=== PATIENT | female | born 1950 | race Caucasian/White ===

== ENCOUNTER 2024-11-10 13:16 | Emergency (ER) | payer MEDICARE, OTHER, SELFPAY ==
[2024-11-10 13:25] VITALS: BP 133/83
[2024-11-10 13:40] LABS: % Basophils 1.2 % (0-2); % Eosinophils 3.1 % (0-6); % Immature Granulocytes 0.1 % (0-0.5); % Lymphocytes 26.7 % (20.5-51.1); % Monocytes 6.5 % (1.7-9.3); % Neutrophils 62.4 % (42.2-75.2); Absolute Basophils 0.1 10^3/uL (0-0.2); Absolute Eosinophils 0.3 10^3/uL (0-0.7); Absolute Lymphocytes 2.3 10^3/uL (1.2-3.4); Absolute Monocytes 0.6 10^3/uL (0.1-0.6); Absolute Neutrophils 5.3 10^3/uL (1.4-6.5); Hematocrit 37.1 % (37.0-47.0); Hemoglobin 12.6 g/dL (12.0-16.0); Mean Corpuscular Hgb 31.1 pg (27.0-31.0); Mean Corpuscular Volume 91.6 fL (81.0-99.0); Mean Platelet Volume 10.7 fL (7.4-10.4); Nucleated Red Blood Cells % 0 %; Platelet Count 161 10^3/uL (130-400); Red Blood Cell Count 4.05 10^6/uL (4.20-5.40); Red Cell Dist. Width 12.6 % (11.5-14.5); White Blood Cell Count 8.5 10^3/uL (4.8-10.8)
[2024-11-10 14:00] LABS: ALT (SGPT) 24 U/L (0-35); AST (SGOT) 40 U/L (14-36); Albumin 4.3 g/dl (3.5-5.0); Alkaline Phosphatase 75 U/L (38-126); Blood Urea Nitrogen 29 mg/dl (7-17); Calcium 9.8 mg/dl (8.4-10.2); Carbon Dioxide 25 mmol/L (22-30); Chloride 108 mmol/L (98-107); Glucose 233 mg/dl (70-99); Magnesium 1.5 mg/dl (1.6-2.3); Potassium 4.9 mmol/L (3.5-5.1); Sodium 142 mmol/L (135-145); Total Bilirubin 0.5 mg/dl (0.2-1.3); Total Protein 6.9 g/dl (6.3-8.2); eGFR > 60.00
--- NOTE | 2024-11-10 14:01 | ED.GENMED ---
History of Present Illness
General
Chief Complaint: Heart Rate Problem
Source: patient
Exam Limitations: none
Time Seen by Provider: 11/10/24 14:01
History of Present Illness
History of Present Illness:
74-year-old female complaining of heart racing lightheadedness some shortness of breath this morning around 9 AM. Persisted until she got here. Has had episodes intermittently in the past over months. Last episode was 2 days ago. No chest pain
or syncope. No proven history of atrial fibrillation. Patient has a history of diabetes. Is on a TERRIE inhibitor although states she has no history of hypertension. Currently feels fine. And has no symptoms.
Past History
Past History
ED Past Medical History: GERD and NIDDM
ED Past Surgical History: Cholecystectomy
Review of Systems
Review of Systems
All Other Systems: Not applicable
Cardiac: Denies chest pain or syncope
ABD/GI: Denies bloody stools or black stools
Phy Exam
Physical Exam
Physical Exam:
GENERAL: Alert and oriented in no apparent distress
EYE: Orbits normal.
NECK: Supple, no thyroid palpable
ENT: Pharynx without erythema
CARDIAC: Regular rate and rhythm without any obvious murmurs.
LUNGS: Clear breath sounds,normal
ABDOMEN: Soft, without focal tenderness or distention
NEUROLOGICAL: Alert and oriented , grossly non-focal
SKIN: Warm and dry, no rash or lesion, no discoloration, skin intact.
MUSCULOSKELETAL: Minimal bilateral lower extremity pitting edema
PSYCH: Normal and appropriate interaction.
Scores
[id number] Score for Afib Stroke Risk
Age in Years (65=0, 65-74=1, >/=75=2): > or = 75
Sex (Female=+1): Female
Congestive Heart Failure History (Yes=+1): No
Hypertension History (Yes=+1): No
Stroke/TIA/Thromboembolism History (Yes=+2): No
Vascular Disease History (Yes=+1): No
Diabetes Mellitus (Yes=+1): No
Score: 3
Anticoagulation Recommendations: Recommend anticoagulation (as validated in nonvalvular fib)
Course
Orders/Labs/Results
Orders:
Orders
11/10/24 13:18
Electrocardiogram (*1) Urgent
Reason for Study: Chest Pain
EKG- Treatment ONCE
11/10/24 13:34
Complete Blood Count/With Diff Urgent
Comprehensive Metabolic Panel Urgent
Magnesium Urgent
TSH Urgent
Troponin I Urgent
11/10/24 14:15
EKG [Electrocardiogram (*1)] Urgent
Reason for Study: Palpitations
EKG- Treatment ONCE
11/10/24 14:26
Apixaban [Eliquis] 5 mg PO NOW STA
Diltiazem Extended Release [Cardizem Cd] 120 mg PO NOW STA
Abnormal Lab Results
11/10/24
13:34
RBC 4.05 L 10^6/uL
(4.20-5.40)
MCH 31.1 H pg
(27.0-31.0)
MPV 10.7 H fL
(7.4-10.4)
Chloride 108 H mmol/L
(98-107)
BUN 29 H mg/dl
(7-17)
Glucose 233 H mg/dl
(70-99)
Magnesium 1.5 L mg/dl
(1.6-2.3)
AST 40 H U/L
(14-36)
11/10/24 13:34
11/10/24 13:34
Vital Signs
Initial and Last Documented VS:
Initial Vital Signs
Temp Pulse Resp BP Pulse Ox
98.2 F 113 20 133/83 98
11/10/24 13:25 11/10/24 13:25 11/10/24 13:25 11/10/24 13:25 11/10/24 13:25
Last Documented Vital Signs
Temp Pulse Resp BP Pulse Ox
98.2 F 65 18 138/64 99
11/10/24 13:25 11/10/24 15:15 11/10/24 15:15 11/10/24 15:01 11/10/24 15:15
MDM/Problems Addressed
Differential Diagnosis Includes:
Patient describing PAF. Self resolved. Currently asymptomatic. [id number] 3 or 4 if you include her hypertension. No contraindication to anticoagulation. Discussed plus minuses of Coumadin versus a DOAC. Will start DOAC. Low-dose Cardizem
and cardiac follow-up. Discussed with cardiology
*Pulse Oximetry
Patient hypoxic: no
*EKG
Interpreted by ED Provider?: Yes
Interpretation: abnormal
Comparison EKG: no comparison EKG present
Heart Rate: 156
Rate: tachycardiac
Rhythm: a-fib
[place]: normal axis
Interval: normal interval
QRS Pattern: normal QRS
Ischemia: non-specific ST changes
*Field Crop Technical Officer Interpretation
Rate: normal
Interpretation: normal
Heart Rate: 70
Rhythm: sinus
*Critical Care Note
Total Time (30-74mins, 75-104mins- exclusive of procedures): Not Applicable
Update Note
Update Note:
Patient is remained stable and nontoxic. No arrhythmias. Stable heart rate. Stable blood pressure. Discharged to follow-up
ED Attending Note
-
Portions of this chart may have been created with voice recognition software.� Occasional wrong word or��sound alike� substitutions may have occurred due to the inherent limitations of voice recognition software.
Discharge Plan
Departure
Patient Disposition: Home (Routine Discharge)
Date of Disposition: 11/10/24
Time of Disposition: 16:09
Patient with high blood pressure during this ER visit?: Yes
Discharge Problem:
Paroxysmal atrial fibrillation/RVR
Instructions: Atrial Fibrillation (DC), Managing increased bleeding risk, BLOOD PRESSURE
Prescriptions:
New
Eliquis 5 mg tablet
5 mg PO BID Qty: 60 0RF
diltiazem HCl [Cardizem CD] 120 mg capsule,extended release 24hr
120 mg PO DAILY Qty: 30 0RF
Referrals:
Charlie Salguero MD [Family Provider] - Follow up in 2-3 days
Han Fields MD [Active] - Follow up in 2-3 days
Activity Restrictions/Additional Instructions:
Stop the ramipril stop the aspirin
Call the lumber tying machine operator first thing for close follow-up
Interventions
Interventions:
*General Assessment Last Done: 11/10/24 13:25
*Neglect/Abuse Screening Last Done: 11/10/24 14:12
*ED- Fall Risk Assessment Last Done: 11/10/24 14:11
*ED COVID-19 Vaccine History Last Done: 11/10/24 14:12
ED- Cardiac Assessment Last Done: 11/10/24 14:11
ED- Pulmonary Assessment Last Done: 11/10/24 14:11
Discharge Date and Time
Print Language: MONTSERRATIAN
[2024-11-10 14:07] LABS: Troponin I < 0.012 ng/ml
[2024-11-10 14:21] VITALS: BP 116/74
[2024-11-10 14:30] LABS: TSH 2.34 uIU/ml (0.47-4.68)
[2024-11-10] MEDS: ELIQUIS 5 MG PO (14:52)
[2024-11-10] MEDS: CARDIZEM CD 120 MG PO (14:52)
[2024-11-10 15:01] VITALS: BP 138/64
== END 2024-11-10 16:25 | disposition home or self-care (01) ==
LOC: EMR 13:16
PROVIDERS: Emergency Medicine; EMERGENCY PHYSICIAN Emergency Medicine; FAMILY PHYSICIAN Internal Medicine
DX: I48.0 Paroxysmal atrial fibrillation (principal); R03.0 Elevated blood-pressure reading, without diagnosis of hypertension; E11.9 Type 2 diabetes mellitus without complications
CPT/HCPCS: 99284; 80053; 83735; 84443; 84484; 85025; 93005

== ENCOUNTER → 2024-12-01 08:35 | Outpatient (REF) | payer MEDICARE, OTHER, SELFPAY | LOC: RCS 08:35 | PROVIDERS: ATTENDING PHYSICIAN Internal Medicine; FAMILY PHYSICIAN Internal Medicine | DX: I48.0 Paroxysmal atrial fibrillation (principal); I35.0 Nonrheumatic aortic (valve) stenosis; I10 Essential (primary) hypertension | CPT/HCPCS: 93306 ==

== ENCOUNTER → 2024-12-02 07:13 | Outpatient (REF) | payer MEDICARE, OTHER, SELFPAY | LOC: RAD 07:13 | PROVIDERS: ATTENDING PHYSICIAN Internal Medicine; FAMILY PHYSICIAN Internal Medicine | DX: I48.0 Paroxysmal atrial fibrillation (principal); I35.0 Nonrheumatic aortic (valve) stenosis | CPT/HCPCS: 93225; 93226; 93880 ==

== ENCOUNTER → 2024-12-05 07:14 | Outpatient (REF) | payer MEDICARE, OTHER, SELFPAY | LOC: HWRCS 07:14 | PROVIDERS: ATTENDING PHYSICIAN Internal Medicine; FAMILY PHYSICIAN Internal Medicine | DX: I48.0 Paroxysmal atrial fibrillation (principal); R07.89 Other chest pain | CPT/HCPCS: 78452; 93017; A9500; J2785 ==

== ENCOUNTER → 2025-02-17 13:15 | Outpatient (REF) | payer MEDICARE, OTHER, SELFPAY ==
[2025-02-17 13:49] LABS: Hematocrit 33.9 % (37.0-47.0); Hemoglobin 11.6 g/dL (12.0-16.0); Mean Corp Hgb Conc. 34.2 g/dL (33.0-37.0); Mean Corpuscular Volume 92.6 fL (81.0-99.0); Nucleated Red Blood Cells % 0 %; Platelet Count 156 10^3/uL (130-400); Red Cell Dist. Width 12.4 % (11.5-14.5)
[2025-02-17 14:52] LABS: ALT (SGPT) 24 U/L (0-35); AST (SGOT) 31 U/L (14-36); Albumin 4.5 g/dl (3.5-5.0); Alkaline Phosphatase 55 U/L (38-126); Blood Urea Nitrogen 29 mg/dl (7-17); Calcium 9.7 mg/dl (8.4-10.2); Carbon Dioxide 27 mmol/L (22-30); Chloride 106 mmol/L (98-107); Glucose 124 mg/dl (70-99); Potassium 4.9 mmol/L (3.5-5.1); Sodium 140 mmol/L (135-145); Total Protein 7.0 g/dl (6.3-8.2); eGFR 52.40
== END ==
LOC: SDSPAT 13:15
PROVIDERS: ATTENDING PHYSICIAN Internal Medicine Cardiovascular Disease; FAMILY PHYSICIAN Internal Medicine; OTHER PHYSICIAN Internal Medicine
DX: I48.0 Paroxysmal atrial fibrillation (principal)
CPT/HCPCS: 36415; 80053; 85025; 86850; 86900; 86901; 93005

== ENCOUNTER 2025-03-03 10:13 | Day surgery (SDC) | payer MEDICARE, OTHER, SELFPAY ==
[2025-02-17 13:32] VITALS: BMI 30.2
[2025-03-03] VITALS (9 sets, daily range): BP systolic 111–160; BP diastolic 64–80; BMI 30.3
[2025-03-03 11:03] LABS: Glucose - Point of Care 143 mg/dl (70-99)
[2025-03-03 13:55] LABS: ACT-LR - POC 360 Seconds (116-155)
[2025-03-03 14:15] LABS: ACT-LR - POC 327 Seconds (116-155)
--- NOTE | 2025-03-03 14:38 | ITS.CL.ABL ---
[facility] - Ablation
Ablation
Procedure Report:
AFIB ablation:
Ms. Marr is a very pleasant 74 yr old woman with medical history significant for symptomatic paroxysmal atrial fibrillation is here in the EP lab for atrial fibrillation ablation
Date of Procedure:
03/03/2025
Indications:
Symptomatic paroxysmal atrial fibrillation
Pre-Operative Diagnosis:
Paroxysmal atrial fibrillation
Post-Operative Diagnosis:
Paroxysmal atrial fibrillation
Procedure Performed:
Atrial fibrillation ablation with wide area circumferential ablation (WACA) approach for pulmonary vein isolation
Performing Physician:
Anny Sharp MD
Assistants:
EP staff
Anesthesia:
See anesthesia records
Detailed Description of the Procedure:
Written informed consent was obtained from the patient after a full explanation of the risks and benefits of the procedure including the risks of sedation and anesthesia.
The patient was brought to the electrophysiology laboratory in stable condition in fasting state. Continuous electrocardiographic and hemodynamic monitoring was initiated.
The initial rhythm was sinus rhythm.
The procedure site was meticulously prepared with surgical scrub and allowed to dry with no pooling. Sterile draping was applied to cover the procedure site. The image intensifier was draped with sterile bag and positioned over the patient. After
infusion of local anesthetic, vascular access was obtained under ultrasound guidance and sheaths were placed over guide wire as detailed below.
The images of the ultrasound of the femoral vessels were stored in patient chart.
Sheath and Catheter Placement:
The following catheters / sheaths were placed
Sheaths:
��������� Agilis sheath in right femoral vein upgraded from 10Fr in right femoral vein
��������� 9Fr in right femoral vein
Catheters:
��������� The Affera Sphere 9 catheter -bidirectional D/F� - at locations of HRA, LA and LV.
��������� ICE catheter -� at locations of RA, SVC, and RV.
Heparin was initiated after the access was obtained.
Intracardiac ECHO:
An 8-Romanian AcuNav intracardiac ECHO (ICE) probe was advanced through the 9-Romanian sheath in the left femoral vein into the right atrium under fluoroscopic and ICE ultrasound image guidance and a baseline ECHO study was performed. The left atrial
size was mildly dilated. There was trace tricuspid regurgitation. The aortic valve was grossly normal. There was normal left ventricular size and function. There is a trace pericardial effusion. The ELIANA has baseline normal velocities. The pulmonary
had good flow identified.
During the procedure, ICE was used for monitoring of complications, guidance of trans-septal puncture, monitor the catheter position and tracking ablation lesions. No change in the pericardial space noted throughout the procedure.
Trans-septal Puncture:
Heparin was initiated and infused to maintain appropriate ACT. A J-tipped guidewire was advanced through into the superior vena cava under fluoroscopic and ICE guidance. The Agilis sheath with BRK needle was advanced into the superior vena cava over
the guidewire. The apparatus was withdrawn until it was in contact with the fossa ovalis. The position was adjusted based on fluoroscopy and ultrasound images from ICE. Under fluoroscopic, hemodynamic and ICE ultrasound guidance, left atrium was
cannulated by advancing the needle. Once atrial septum was cannulated, the needle was pulled back and the guide wire was advanced through the needle into the left atrium. The guide wire was advanced into the left superior pulmonary vein. Both the
sheath and the dilator was advanced into the left atrium. The dilator with the needle was withdrawn. Blood was aspirated from the Agilis sheath and arterial blood confirmed. The sheath was flushed. Saline injection noted into the left atrium on ICE.
The waveform of the LA pressure was recorded. The mapping catheter was advanced in the Agilis sheath into the left pulmonary vein.
3D Electroanatomic Mapping:
Using the Sphere 9 Affera catheter advanced through Agilis sheath into the left atrium, an electroanatomic map (EAM) of the left atrium was created using Transit Appa� mapping system with [email or web address] software. The map was used for localization of catheter
position and tacking of ablation lesions. The EAM of the left atrium showed a total of 4 PVs with a two left and two right sided pulmonary veins with all electrically connected to the body the LA. It showed no significant scar on the posterior wall
of the LA. The LA was dilated in size.
Following the EAM, preparation were made for ablation.
Ablation:
Ablation # 2: Pulmonary vein Isolation:
Glycopyrrolate 0.2 mg was given prior to the placement of ablation.
Pulsed field ablation was performed using an open irrigation, bidirectional, contact sensing, dual energy ablation catheter (Transit Appa sphere -9) by completing the circumferential lesions around the left and right pulmonary veins achieving pulmonary
vein isolation.
Confirmation of the PVI and bidirectional block:
Following achievement of entrance block at the pulmonary veins, pacing from the Sphere 9 affera catheter in each of the four veins at 20 milliamps for 4 milliseconds showed entrance and exit block.
The LA was mapped with The Transit Appa� mapping system with [employer] software in sinus rhythm confirming the line of block at the ablation lesions lines.
�
EP study:
Sinus Node Function: The sinus node functions are within acceptable normal range.
Atrioventricular Aliyah Function: �Normal AV conduction noted with normal AV aliyah conduction time.
Procedure End
ICE study was done again that showed no epicardial accumulation. No complications noted.
Following the completion of the EP study, catheters were removed. Protamine 40 mg was given at the end of the procedure and ACT was checked repeatedly. The sheaths were removed and hemostasis achieved with VASCADE / Figure of 8 suture and manual
compression after acceptable ACT is achieved.
Left atrial Pressure:
Pre-Procedure: Mean LA pressure was 4mmHg
Post-Procedure: Mean LA pressure was 5mmHg
Post-Procedure: Mean RA pressure was 3mmHg
�
Estimated Blood loss:
<10 cc
Specimens Removed:
None.
Implants / Devices:
None
Urine output:
None
Packs / Drains/ Tubes:
None
Instrument / Sponge Count Correct:
Yes
Complications of the Procedure:
None
Condition of Patient at Time of Transfer:
Hemodynamically stable with no neurological or vascular compromise.
Summary:
��������� Successful atrial fibrillation ablation with circumferential bidirectional line of block at pulmonary vein antra (Pulmonary vein isolation)
Figures from the Procedure:
Figure 1: The electroanatomic mapping (EAM) of the left atrium with bipolar voltage (purple indicates normal electrical activity with red as no myocardial muscle electric activity indicating a line of block or scar.
[2025-03-03 16:22] LABS: Glucose - Point of Care 151 mg/dl (70-99)
--- NOTE | 2025-03-03 17:02 | W.PN.UPDATE ---
Update Note
Progress Note Update
Pt seen post PFA. Right groin with vascade closure, site without ht/bleeding. OOB ambulating. Post EKG NSR 74, no acute changes. Resume eliquis tonight, continue diltiazem as before. Followup at [facility] as scheduled. Home today if groin site/tele remain
stable.
== END 2025-03-03 17:25 | disposition home or self-care (01) ==
LOC: CATH 10:13
PROVIDERS: ATTENDING PHYSICIAN Internal Medicine Cardiovascular Disease; FAMILY PHYSICIAN Internal Medicine; OTHER PHYSICIAN Internal Medicine
DX: I48.0 Paroxysmal atrial fibrillation (principal); I10 Essential (primary) hypertension; E78.5 Hyperlipidemia, unspecified; Z87.891 Personal history of nicotine dependence; E66.9 Obesity, unspecified; Z68.30 Body mass index [BMI] 30.0-30.9, adult; E11.9 Type 2 diabetes mellitus without complications; K21.9 Gastro-esophageal reflux disease without esophagitis; Z90.49 Acquired absence of other specified parts of digestive tract; Z79.01 Long term (current) use of anticoagulants; Z79.899 Other long term (current) drug therapy; Z79.84 Long term (current) use of oral hypoglycemic drugs; D64.9 Anemia, unspecified; I35.0 Nonrheumatic aortic (valve) stenosis
CPT/HCPCS: C1769; C1733; C1766; C1894; C1892; 82962; 85347; 86900; 86901; 93005; 93656; C1760

== ENCOUNTER 2025-06-01 07:53 | Inpatient (IN) | payer MEDICARE, OTHER, SELFPAY ==
[2025-05-29 19:37] VITALS: BP 166/91
[2025-05-29 19:56] LABS: Hematocrit 33.0 % (37.0-47.0); Hemoglobin 11.0 g/dL (12.0-16.0); Mean Corp Hgb Conc. 33.3 g/dL (33.0-37.0); Mean Corpuscular Volume 93.8 fL (81.0-99.0); Nucleated Red Blood Cells % 0 %; Platelet Count 213 10^3/uL (130-400); Red Cell Dist. Width 12.7 % (11.5-14.5)
[2025-05-29 20:19] LABS: ALT (SGPT) 21 U/L (0-35); AST (SGOT) 32 U/L (14-36); Albumin 4.6 g/dl (3.5-5.0); Alkaline Phosphatase 67 U/L (38-126); Blood Urea Nitrogen 25 mg/dl (7-17); Calcium 9.7 mg/dl (8.4-10.2); Carbon Dioxide 27 mmol/L (22-30); Chloride 106 mmol/L (98-107); Glucose 120 mg/dl (70-99); Potassium 4.4 mmol/L (3.5-5.1); Sodium 142 mmol/L (135-145); Total Protein 7.4 g/dl (6.3-8.2); eGFR > 60.00
--- NOTE | 2025-05-29 23:17 | ED.SKININJ ---
HPI-Injury
<Hanny Pete, SERVICE MANAGER - Last Filed: 05/30/25 01:50>
General
Chief Complaint: Skin Problem
Source: patient
Exam Limitations: none
Time Seen by Provider: 05/29/25 22:37
Nursing documentation reviewed up to this point in time: agreed with
History of Present Illness-Injury
Initial Injury comments:
74-year-old female with history of NIDDM, GERD, A-fib on Eliquis, presents for wound posterior left lower leg. She states 12 days ago she was in her basement cleaning when a pipe fell over and struck the back of her left leg causing a break in the
skin. She has had increasing redness, swelling and pain since. She denies fever or chills. Denies N/V. She states it is painful to walk.
Past History
<Hanny Pete, SERVICE MANAGER - Last Filed: 05/30/25 01:50>
Past History
ED Past Medical History: GERD and NIDDM
ED Past Surgical History: Cholecystectomy
Review of Systems
<Hanny Pete, SERVICE MANAGER - Last Filed: 05/30/25 01:50>
Review of Systems
Allergies reviewed?: Yes
All Other Systems: ROS reviewed and negative except as documented in HPI and ROS
Constitutional: Denies fever or chills
Phy Exam
<Hanny Pete, SERVICE MANAGER - Last Filed: 05/30/25 01:50>
Physical Exam
Physical Exam:
GENERAL: No acute distress. A&Ox3.
CONSTITUTIONAL: Afebrile.
EYES: clear, conjunctivae normal
ENMT: moist mucus membranes, Pharynx nl
RESPIRATORY: Regular respirations, nonlabored, lungs clear.
CARDIOVASCULAR: Regular rate and rhythm, no murmurs, no rubs.
GI: Soft, nontender, normal BS
MUSCULOSKELETAL: Moves with ease. Well perfused.
SKIN: Warm, dry, pink. Left lower extremity has a 20 cm x 20 cm erythematous area posteriorly. In the center there is a dark ecchymotic area that is raised and very tender. Distal neurovascular intact.
PSYCH: Normal mood and affect. Well kept, interactive and appropriate
NEUROLOGIC: Awake, alert and oriented. No focal neurological deficits
Course
<Hanny Pete, SERVICE MANAGER - Last Filed: 05/30/25 01:50>
Orders/Labs/Results
Orders:
Orders
05/29/25 19:39
US Legs, Left [US Periph Venous LOWER Ext LT] Urgent
Comment:
Reason For Exam: redness/pain left calf
05/29/25 19:43
Complete Blood Count/With Diff Urgent
Comprehensive Metabolic Panel Urgent
05/29/25 23:46
Piperacillin/Tazo 3.375 Gram [Zosyn] 3.375 gram in 50 ml IV NOW
05/29/25 23:47
Oxycodone/Acetaminophen [Percocet 5/325] 1 tablet PO NOW STA
05/30/25 00:46
Admit/Transfer Patient As Directed
Co-Sign Provider:
Level of Care: Observation services
Assign to:: Medical/Surgical
Physician / Group: [facility]
Diagnosis: Cellulitis
05/30/25 00:47
Code Status As Directed
Resuscitation Status: Full Code
PRN Pain Medication Management As Directed
May give lesser potent ordered pain med per pt: Yes
preference::
Protocol:: Medication orders for pain may be administered in a
manner that supports deferring to patient preference
when the pt is:
- Requesting an ordered lesser potent pain medication.
Least to most potent pain medications are defined
as: acetaminophen < NSAID < tramadol < opioids
(morphine, oxycodone, hydromorphone).
- Requesting a lesser dose of the same medication IF
ORDERED.
- Requesting a less intrusive route of administration
if both routes are prescribed by the provider (PO <
IV).
Abnormal Lab Results
05/29/25
19:43
RBC 3.52 L 10^6/uL
(4.20-5.40)
Hgb 11.0 L g/dL
(12.0-16.0)
Hct 33.0 L %
(37.0-47.0)
MCH 31.3 H pg
(27.0-31.0)
BUN 25 H mg/dl
(7-17)
Glucose 120 H mg/dl
(70-99)
05/29/25 19:43
05/29/25 19:43
Vital Signs
Initial and Last Documented VS:
Initial Vital Signs
Temp Pulse Resp BP Pulse Ox
98.0 F 80 18 166/91 96
05/29/25 19:37 05/29/25 19:37 05/29/25 19:37 05/29/25 19:37 05/29/25 19:37
Last Documented Vital Signs
Temp Pulse Resp BP Pulse Ox
98.3 F 68 18 167/58 96
05/29/25 23:39 05/29/25 23:39 05/29/25 19:37 05/29/25 23:39 05/29/25 23:18
Feed Mill Manager consulted with Physician
Feed Mill Manager consulted with physician?: Yes
Name of Physician Consulted: Mary Ann
Kiranlt;Star Reese DO - Last Filed: 05/30/25 00:17>
Orders/Labs/Results
Orders:
Orders
05/29/25 19:39
US Legs, Left [US Periph Venous LOWER Ext LT] Urgent
Comment:
Reason For Exam: redness/pain left calf
05/29/25 19:43
Complete Blood Count/With Diff Urgent
Comprehensive Metabolic Panel Urgent
05/29/25 23:46
Piperacillin/Tazo 3.375 Gram [Zosyn] 3.375 gram in 50 ml IV NOW
05/29/25 23:47
Oxycodone/Acetaminophen [Percocet 5/325] 1 tablet PO NOW STA
05/30/25 00:46
Admit/Transfer Patient As Directed
Co-Sign Provider:
Level of Care: Observation services
Assign to:: Medical/Surgical
Physician / Group: Donn
Diagnosis: Cellulitis
05/30/25 00:47
Code Status As Directed
Resuscitation Status: Full Code
PRN Pain Medication Management As Directed
May give lesser potent ordered pain med per pt: Yes
preference::
Protocol:: Medication orders for pain may be administered in a
manner that supports deferring to patient preference
when the pt is:
- Requesting an ordered lesser potent pain medication.
Least to most potent pain medications are defined
as: acetaminophen < NSAID < tramadol < opioids
(morphine, oxycodone, hydromorphone).
- Requesting a lesser dose of the same medication IF
ORDERED.
- Requesting a less intrusive route of administration
if both routes are prescribed by the provider (PO <
IV).
Abnormal Lab Results
05/29/25
19:43
RBC 3.52 L 10^6/uL
(4.20-5.40)
Hgb 11.0 L g/dL
(12.0-16.0)
Hct 33.0 L %
(37.0-47.0)
MCH 31.3 H pg
(27.0-31.0)
BUN 25 H mg/dl
(7-17)
Glucose 120 H mg/dl
(70-99)
05/29/25 19:43
05/29/25 19:43
Vital Signs
Initial and Last Documented VS:
Initial Vital Signs
Temp Pulse Resp BP Pulse Ox
98.0 F 80 18 166/91 96
05/29/25 19:37 05/29/25 19:37 05/29/25 19:37 05/29/25 19:37 05/29/25 19:37
Last Documented Vital Signs
Temp Pulse Resp BP Pulse Ox
98.3 F 68 18 167/58 96
05/29/25 23:39 05/29/25 23:39 05/29/25 19:37 05/29/25 23:39 05/29/25 23:18
<Hanny Pete, SERVICE MANAGER - Last Filed: 05/30/25 01:50>
MDM/Problems Addressed
Differential Diagnosis Includes:
Cellulitis, DVT
MDM/Problems Addressed:
74-year-old female with history of NIDDM, GERD, A-fib on Eliquis, presents for wound posterior left lower leg. She states 12 days ago she was in her basement cleaning when a pipe fell over and struck the back of her left leg causing a break in the
skin. She has had increasing redness, swelling and pain since. She denies fever or chills. Denies N/V. She states it is painful to walk.
Afebrile, NAD
CBC unremarkable
CMP unremarkable
Ultrasound radiology report read: Neg for DVT, + hematoma
Pretty significant warmth, tenderness, cellulitis and a diabetic patient.
Recommend admission for IV antibiotics
Hospitalist notified of admission
<Hanny Pete, SERVICE MANAGER - Last Filed: 05/30/25 01:50>
*Pulse Oximetry
SaO2: 96
Oxygen Mode of Delivery: Room air
Patient hypoxic: not evaluated
*Critical Care Note
Total Time (30-74mins, 75-104mins- exclusive of procedures): Not Applicable
ED Attending Note
<Hanny Pete SERVICE MANAGER - Last Filed: 05/30/25 01:50>
-
Portions of this chart may have been created with voice recognition software.� Occasional wrong word or��sound alike� substitutions may have occurred due to the inherent limitations of voice recognition software.
<Star Reese DO - Last Filed: 05/30/25 00:17>
ED Attending Note
Patient seen and examined by attending physician: Yes
I performed the substantive portion of visit, reviewed & personally made and approve the management plan that is documented in note by myself or EUFEMIA.: Yes
ED Attending Note:
I agree with Nirmala's note
Patient presents with pain, redness, swelling posterior left calf. Patient suffered an injury as noted by Nirmala. Increasing pain recently. No fever.
Left lower extremity noted to have erythema, swelling at the lower third of the lower leg. Posteriorly there is an area of black discoloration and eschar. There is ecchymotic changes noted to the foot. Area is quite tender to palpation.
Suspect patient had a hematoma in this area which may now have become infected. Will hospitalize him cover with antibiotics.
Discharge Plan
Departure
Patient Disposition: Admit
Date of Disposition: 05/29/25
Time of Disposition: 23:46
Admit to: Med/Surg
Presentation/result/management discussed w/ accepting MD/DO: Hospitalist
Condition: Fair
Discharge Problem:
Cellulitis of left lower extremity
Interventions
Interventions:
*Risk Screen - Suicide Last Done: 05/30/25 00:04
*General Assessment Last Done: 05/29/25 19:37
*ED- Fall Risk Assessment Last Done: 05/29/25 23:53
*ED COVID-19 Vaccine History Last Done: 05/29/25 23:53
*ED Influenza Vaccine History Last Done: 05/29/25 23:53
ED-Skin Assessment Last Done: 05/30/25 00:40
[2025-05-29 23:39] VITALS: BP 167/58
[2025-05-29 23:41] VITALS: BMI 30.1
[2025-05-29] MEDS: PERCOCET 5/325 1 TABLET PO (23:56)
[2025-05-29] MEDS: ZOSYN 50 IV (23:56)
--- NOTE | 2025-05-30 00:25 | HPS.HSE ---
Family Physician
-
Family Physician: Charlie Salguero
Chief Complaint
-
Lower extremity swelling and tenderness
History of Present Illness
This is a 74-year-old with past medical history of pim-oevlyvq-blnxkzotr diabetes, atrial fibrillation on anticoagulation status post recent ablation in March, GERD, hyperlipidemia who presents to the emergency department with left lower
extremity swelling and redness ongoing since 2 weeks after blunt trauma to that leg.
Patient reported that she had a blunt trauma to the leg about 2 weeks ago. She developed a swelling since then and was seen by PMD were told that she had hematoma. She applied hide ice and avoided weightbearing on that leg. She reported that she
was able to be out of symptoms however has been getting worse and over the last 24 hours she reports a new burning sensation localized to the leg. She is now unable to put any weight on that leg. She reports that the swelling is about the same.
She denies any discharge. She denies having any fevers or chills.
In the emergency department she was afebrile, blood pressure 167/58 with a pulse of 68 and she was satting 96% on room air.
CBC was unremarkable. White count was 7.8. Electrolytes BUN/creatinine were normal. She had an ultrasound of the lower extremity which was negative for a DVT with a 3.2 x 3.8 x 1.1 cm complex avascular fluid collection posterior to the distal
left calf at site of trauma likely a hematoma
Medical History
Past Medical History
Past Medical History: Reports Arrhythmia (Paroxysmal atrial fibrillation status post ablation), Hypercholesterolemia and NIDDM
Past Surgical History: Reports Cholecystectomy and Orthopedic
Social History
Tobacco: Non-smoker
Alcohol: None
Drug: None
Living: With Family
Employment: Retired
Family History
Family History: Not pertinent
Allergies / Home Medications
Allergies reflects when Allergies were last updated in [employer].
Home Medications with original date entered in [employer]
Allergy/Medication List:
Allergies
Allergy/AdvReac Type Severity Reaction Status Date / Time
No Known Allergies Allergy Verified 05/29/25 19:37
Home Medications
apixaban 5 mg tablet (Eliquis) 5 mg PO BID #60 tabs 11/10/24
diltiazem HCl 360 mg capsule,24 hr,extended release 360 mg PO HS 02/13/25
metformin 500 mg tablet,extended release 24hr (osmotic) 500 mg PO BID 02/13/25
pantoprazole 40 mg tablet,delayed release 40 mg PO HS 02/13/25
rosuvastatin 20 mg tablet 20 mg PO DAILY 05/29/25
Review of Systems
-
History Source: Patient
Constitutional: Reports No Symptoms
EENT: Reports No Symptoms
Respiratory: Reports No Symptoms
Cardiac: Reports No Symptoms
Abdomen/GI: Reports No Symptoms
: Reports No Symptoms
Skin: Reports Other (Left-sided lower leg/calf swelling erythema and tenderness)
Neurological: Reports No Symptoms
Endocrine: Reports No Symptoms
Hematologic/Lymphatic: Reports No Symptoms
Psych: Reports No Symptoms
Physical Exam
Vital Signs
Vital Signs
Temp Pulse Resp BP Pulse Ox
98.3 F 68 18 167/58 96
05/29/25 23:39 05/29/25 23:39 05/29/25 19:37 05/29/25 23:39 05/29/25 23:18
Physical Exam
General: Well Developed, Well Nourished and No Apparent Distress
HEENT: NormoCephalic, Moist mucous membranes and Atraumatic
Respiratory: Clear
Cardiac: S1/S2 and Regular Rhythm; No Murmur or Rub
GI: Soft, Non Tender, Non Distended and Normal Bowel Sounds; No Organomegaly
Rectal: Deferred by Provider
Musculoskeletal: No Clubbing, No Cyanosis and Edema, Left Lower Extremity (There is nodular swelling in the posterior left lower calf, associated tenderness to palpation is quite exquisite. There is surrounding erythema of about sick centimeters in
diameter. Moderate induration. There is no obvious fluctuance.)
Skin: No Rash
Neuro: AO x 3 and Nonfocal/grossly intact
Hematologic/Lymphatic: No Lymphadenopathy
Psych: Calm
Laboratory Results
-
05/29/25 19:43
05/29/25:43
Laboratory Results
Total Bilirubin 0.4 mg/dl (0.2-1.3) 05/29/25 19:43
AST 32 U/L (14-36) 05/29/25:43
ALT 21 U/L (0-35) 05/29/25:43
Alkaline Phosphatase 67 U/L (38-126) 05/29/25:43
Data Reviewed
-
Ultrasound: Report Reviewed by me
Lab Data: Labs Reviewed by me
Old Records: Reviewed
Impression/Plan
-
IMPRESSION:
74-year-old female with past medical history of bqo-zzzasek-ocirvrhlr diabetes, paroxysmal atrial fibrillation status post ablation, GERD and hyperlipidemia who presents to the emergency department with left lower extremity swelling and erythema
concerning for cellulitis after trauma. Ultrasound is consistent with hematoma in that leg which appears to have been present for about a week but there is appears to be surrounding cellulitis now. Cannot rule out an infectious fluid collection
based on the ultrasound but more likely is an hematoma with superficial cellulitis.
PLAN:
Cellulitis - Cellulitis secondary to Left lower posterior calf trauma and hematoma. Cannot rule out abscess. No systemic signs, no leukocytosis. U/S more c/w hematoma.
- admit to med/surg observation
- continue with IV unasyn for now
- blood cultures if spike fever
- pain control
- avoid weight bearing to leg for now
- if no improvement in 24 hours consider alternative imaging for abscess and/or surgical I&D
AFIB
- continue diltiazem
- continue eliquis for now
DM II
- continue metformin 500 bid
- sliding scale insulin
- continue rosuvastatin
DVT PPX - on eliquis
Code status - Full Code
[2025-05-30 01:00] VITALS: BP 135/88
[2025-05-30 02:00] VITALS: BP 128/89
[2025-05-30 03:48] VITALS: BP 140/75; BMI 29.8
--- NOTE | 2025-05-30 05:56 | PTCARENOTE ---
Patient received from ED via stretcher with ED RN transporting. Patient able to ambulate with use of rolling walker and assist x1. Left leg /foot swollen. Hematoma to left calf with cellulitis surrounding. Borders marked on cellulitis. Call [facility]
with in reach. Patient aware she must call before getting up OOB. Patient denies any pain at this time. Will continue to monitor.
[2025-05-30] MEDS: UNASYN IV ×3 (06:12→17:33)
[2025-05-30 06:42] LABS: Hematocrit 28.8 % (37.0-47.0); Hemoglobin 10.0 g/dL (12.0-16.0); Mean Corp Hgb Conc. 34.7 g/dL (33.0-37.0); Mean Corpuscular Volume 92.6 fL (81.0-99.0); Platelet Count 163 10^3/uL (130-400); Red Cell Dist. Width 12.4 % (11.5-14.5)
[2025-05-30 06:54] LABS: Blood Urea Nitrogen 19 mg/dl (7-17); Calcium 9.1 mg/dl (8.4-10.2); Carbon Dioxide 26 mmol/L (22-30); Chloride 108 mmol/L (98-107); Estimated Creatinine Clearance 73 ml/min; Glucose 96 mg/dl (70-99); Magnesium 1.5 mg/dl (1.6-2.3); Potassium 4.2 mmol/L (3.5-5.1); Sodium 142 mmol/L (135-145); eGFR > 60.00
[2025-05-30] MEDS: ROXICODONE 5 MG PO ×2 (07:34→16:29)
[2025-05-30] MEDS: CRESTOR 20 MG PO (07:35)
[2025-05-30] MEDS: ELIQUIS 5 MG PO (07:35)
[2025-05-30 07:45] LABS: Glucose - Point of Care 107 mg/dl (70-99)
[2025-05-30] MEDS: NOVOLOG FLEXPEN-LOW RESISTANCE SC (07:47)
--- NOTE | 2025-05-30 07:48 | W.PN.HOSP.TC ---
Today's Communication/Plan
-
See plan
Assessment / Plan
Assessment / Plan
Physical Exam
General: No Apparent Distress
HEENT: Normocephalic, Moist mucous membranes
Respiratory: Clear to Auscultation Bilaterally
Cardiac: S1/S2 and Regular Rhythm
GI: Soft, Non Tender, Non Distended and Normal Bowel Sounds
Musculoskeletal: No Cyanosis. Left lower extremity 1+ to 2+ edema. Posterior calf ecchymotic and erythematous changes. Diffuse ecchymotic changes extending into the foot and ankle region. Diffuse edema/swelling of the ankle and dorsum of the foot.
Able to plantarflex the ankle with minimal discomfort, although dorsiflexion limited. No weakness with resisted internal or external rotation of the ankle. Fluctuant area in the surrounding regions. Left toes with good capillary refill, left foot
with normal warmth.
Neuro: AO x 3 and Nonfocal/grossly intact
Hematologic/Lymphatic: No Lymphadenopathy
Psych: Calm
Assessment/Plan
74-year-old with past medical history of ypi-rpzvoca-wfgrykobx diabetes mellitus, atrial fibrillation on anticoagulation status post recent ablation in March 2025, GERD and hyperlipidemia who presented to the emergency department with left lower
extremity swelling and redness ongoing since 2 weeks after blunt trauma to that leg. Patient reported that she had a blunt trauma to the leg about 2 weeks prior to presentation. She developed a swelling since then and was seen by PMD were told that
she had hematoma. She applied hide ice and avoided weightbearing on that leg. She reported that she was able to be out of symptoms however has been getting worse and over the 24 hours (prior to presentation) she reported a new burning sensation
localized to the leg. At the time of admission, reported that she is now unable to put any weight on that leg. She reported that the swelling is about the same. She denied any discharge. She denied having any fevers or chills. In the emergency
department she was afebrile, blood pressure 167/58 with a pulse of 68 bpm and she was saturating 96% on room air. Initial CBC was unremarkable. White count was 7.8. Electrolytes BUN/creatinine were normal. She had an ultrasound of the lower
extremity which was negative for a DVT with a 3.8 x 1.1 x 3.2 subcutaneous hematoma within the distal posterior calf soft tissues.
Cellulitis - Cellulitis secondary to Left lower posterior calf trauma and hematoma. Cannot rule out abscess. No systemic signs, no leukocytosis. U/S more c/w hematoma.
- admit to med/surg observation
- Got Zosyn in the ER; continue with IV Unasyn for now -- so far the initial Zosyn, and then later Unasyn have been improving her symptoms
- blood cultures if fever develops
- pain control
- avoid weight bearing to leg for now
- Improving
- X-ray unremarkable
- Orthopedics consulted: proceed with warm compresses over the hematoma and weightbearing/activities to tolerance.
- If no improvement in the hematoma with warm compresses over the next several days, could consider proceeding with a MRI of the left lower extremity to rule out abscess formation versus hematoma
- Hold Eliquis for 2 to 3 days to help the hematoma resolve (last dose was 05/30/25 morning)
- Fluctuance in the affected area is likely hematoma -- plan is to see how the moist heat helps over the next few days
- Curbside question to vascular, vascular said okay to consult no problem -- no CTA needed -- placed consult, they confirmed no issues from their standpoint
- Orthopedics recommended monitoring patient in the hospital at least through 06/01/25
AFIB
- continue diltiazem
- Hold eliquis for now (last dose was on 05/30/25 morning)
Type 2 Diabetes Mellitus
- continue metformin 500 bid
- sliding scale insulin
- continue rosuvastatin
DVT Prophylaxis: SCDs to the right lower extremity only (NOT THE LEFT LOWER EXTREMITY)
Code status - Full Code
Anticipated Discharge: > 48 hours
Subjective/Interval History
-
Date of Service: May 30, 2025
Patient was seen and examined. She reported that her left lower extremity was feeling better. She denied any fever or any other complaints.
Objective Data
-
Labs:
Laboratory Results
05/29/25 05/30/25
19:43 06:15
WBC 7.8 5.5
Hgb 11.0 L 10.0 L
Hct 33.0 L 28.8 L
Plt Count 213 163 D
Sodium 142 142
Potassium 4.4 4.2
Chloride 106 108 H
Carbon Dioxide 27 26
BUN 25 H 19 H
Creatinine 0.8 0.7
Glucose 120 H 96
Calcium 9.7 9.1
Total Bilirubin 0.4
AST 32
ALT 21
Alkaline Phosphatase 67
Vital Signs:
Vital Signs
Temp Pulse Resp BP Pulse Ox
97.6 F 71 16 140/75 98
05/30/25 03:48 05/30/25 03:48 05/30/25 03:48 05/30/25 03:48 05/30/25 03:48
[2025-05-30 08:07] VITALS: BP 152/72
[2025-05-30] MEDS: MAGNESIUM SULFATE 102 GRAMS IV (08:10)
--- NOTE | 2025-05-30 10:31 | CON.VAS ---
Consultation
Consultation Request
Date/Time Consultation Performed: 05/30/2025 at 10:30 AM
Performing Provider: Sergey
Reason for Consultation: Right lower extremity hematoma/cellulitis
Medical History
-
Chief Complaint: Left ankle swelling/redness
History of Present Illness:
74-year-old female with past medical history significant for diabetes, A-fib on , status post ablation in March, GERD, hyperlipidemia presented to the emergency room last night for increased swelling and redness to her left ankle.
Patient admits to blunt trauma to the area about 2 weeks ago. Patient reports initially she did not have pain or swelling to the area but slowly developed some bruising and swelling over the 2 weeks. Over the last few days there was a slight
increase in swelling and redness at the ankle posteriorly. She came to the ER due to the pain and inability to ambulate at home. Patient reports this morning she was able to ambulate to the restroom with a walker touching down with her toes on the
left side. She states the leg has felt better and appears less reddened since admission.
DVT ultrasound negative, small hematoma found by ultrasound. Vascular consult for this finding. Patient seen at bedside this morning resting comfortably. Patient is able to move her toes easily, moderately restricted ankle movement due to the
swelling. The skin at the posterior ankle is ecchymotic but intact, slightly firm in that area but soft in all surrounding areas. All calf compartments are soft. Mild erythema noted on the posterior side which patient notes to be less than
yesterday. Doppler DP and PT signals found easily.
Past Medical History
Past Medical History: Other (See above)
Past Surgical History: Other (See above)
Social History
Tobacco: Non-Smoker
Alcohol: None
Drug: None
Living: With Family
Employment: Retired
Family History
Family History: Reviewed & Not Pertinent
Allergies / Home Medications
Allergy/AdvReac Type Severity Reaction Status Date / Time
No Known Allergies Allergy Verified 05/29/25 19:37
�Medication �Instructions �Recorded �Confirmed �Type
apixaban 5 mg tablet (Eliquis) 5 mg PO BID #60 tabs 11/10/24 05/29/25 Rx
diltiazem HCl 360 mg capsule,24 360 mg PO HS Heart Disease/BP 02/13/25 05/29/25 History
hr,extended release
metformin 500 mg tablet,extended 500 mg PO BID Diabetes 02/13/25 05/29/25 History
release 24hr (osmotic)
pantoprazole 40 mg tablet,delayed 40 mg PO HS Gastrointestinal Issue 02/13/25 05/29/25 History
release
rosuvastatin 20 mg tablet 20 mg PO DAILY cholesterol 05/29/25 05/29/25 History
Review of Systems
-
All other systems: Negative unless noted
Constitutional: Reports No Symptoms
EENT: Reports No Symptoms
Respiratory: Reports No Symptoms
Cardiac: Reports No Symptoms
Vascular: Denies Leg Pain / Claudication
Abdomen/GI: Reports No Symptoms
: Reports No Symptoms
Musculoskeletal: Reports Muscle Stiffness and Edema
Skin: Reports Other (Redness and bruising at the ankle)
Neurological: Reports No Symptoms
Physical Exam
Vital Signs
Temp Pulse Resp BP Pulse Ox
98.2 F 70 20 152/72 99
05/30/25 08:07 05/30/25 08:07 05/30/25 08:07 05/30/25 08:07 05/30/25 08:15
Lab Results
05/30/25 06:15
05/30/25 06:15
Physical Exam
General: No Apparent Distress
HEENT: Normocephalic and Atraumatic
Respiratory: Non Labored Respirations
Cardiac: Negative JVD
GI: Soft and Non Tender
Musculoskeletal: No Clubbing, No Cyanosis and Edema (Left ankle)
Skin: Warm and Other (Area of ecchymosis noted on the posterior distal calf/ankle)
Neuro: Awake, Alert and Oriented
Psych: Calm
Pulses: Left Dorsalis Pedis: Doppler and Left Posterior Tibial: Doppler
Assessment / Plan
-
74-year-old female here with cellulitis and small hematoma to the left posterior ankle/distal calf.
Plan:
No vascular intervention required at this time
Discussed with vascular attending and hospitalist
Data Reviewed
-
Ultrasound: Discussed with Patient
Labs: Labs Reviewed by me
--- NOTE | 2025-05-30 11:00 | CON.ORTHO ---
Consultation
-
Date/Time Consultation Requested: 05/30/2025
Date/Time Consultation Performed: 05/30/2025
Requesting Provider: Dr. Bui
Performing Provider: Simona Frey PA-C, for Dr. Leland Griffith
Reason for Consultation: Left calf hematoma; difficulty weight bearing
Consultation - Orthopedics
History
HPI: Ms. Orosco is a 74-year-old female who planted to [facility] emergency department overnight complaining of progressively worsening posterior left lower leg pain and difficulty ambulating. She states that 2 weeks ago, she was walking past
her bike rack that typically goes on the back of her car, when the rack came down and hit her directly about the lower aspect of her left leg. She is on Eliquis, so was concerned about potential bleeding. She states she put a bandage on the area
right away, but only had 3 spots of blood after the injury. For the first several days, she is able to weight-bear without any difficulties and did not have any significant pain. Since then, day by day, she has been noticing increased swelling,
pain, and inability to fully place pressure on her left ankle. She was seen by her PCP, who diagnosed her with a hematoma. She has remained on her Eliquis. She states that at rest, her pain is tolerable. She is able to move her ankle without any
difficulty and states this does not elicit any increased pain. She has not had any fevers, chills, or drainage from the region of the hematoma on the back of her left lower leg. Our orthopedic specialty was consulted in due to to her inability to
dorsiflex her ankle and bear weight. She was noted to have a good pulses via Doppler. An ultrasound of her lower extremity was negative for DVT, but did show a 3.8 x 1.1 x 3.2 subcutaneous hematoma within the distal posterior calf soft tissues.
She was placed on IV antibiotics for suspected cellulitis, and reports that her symptoms have improved since initiation of this.
Past medical history: Diabetes, A-fib on Eliquis, GERD, hyperlipidemia.
Past surgical history: Status post ablation in March.
Social history: Denies tobacco or alcohol use.
Family history: Noncontributory.
Review of systems: All systems reviewed and negative except for those mentioned in HPI.
Allergies / Home Medications
Allergy/AdvReac Type Severity Reaction Status Date / Time
No Known Allergies Allergy Verified 05/29/25 19:37
�Medication �Instructions �Recorded
apixaban 5 mg tablet (Eliquis) 5 mg PO BID #60 tabs 11/10/24
diltiazem HCl 360 mg capsule,24 360 mg PO HS Heart Disease/BP 02/13/25
hr,extended release
metformin 500 mg tablet,extended 500 mg PO BID Diabetes 02/13/25
release 24hr (osmotic)
pantoprazole 40 mg tablet,delayed 40 mg PO HS Gastrointestinal Issue 02/13/25
release
rosuvastatin 20 mg tablet 20 mg PO DAILY cholesterol 05/29/25
Vital Signs / Lab Results
Temp Pulse Resp BP Pulse Ox
98.2 F 70 20 152/72 99
05/30/25 08:07 05/30/25 08:07 05/30/25 08:07 05/30/25 08:07 05/30/25 08:15
05/30/25 06:15
05/30/25 06:15
Physical examination:
General: Well-developed, well-nourished female in no acute distress at rest. AO x 4.
HEENT: Atraumatic, normocephalic, neck supple.
Lungs: Nonlabored breathing on room air.
Left lower leg: Calf is soft and easily compressible. In the posterior calf, there is an area of eschar, surrounded by ecchymotic and erythematous changes. There does appear to be a fluctuant area in the surrounding regions. Diffuse ecchymotic
changes extending into the foot and ankle region. Diffuse swelling of the ankle and dorsum of the foot. Able to actively dorsiflex and plantarflex the ankle with minimal discomfort. No weakness with resisted internal or external rotation of the
ankle. No tenderness to palpation over the dorsum of the foot, over the distal fibula, medial malleolus, deltoid ligaments, ATFL, CFL, peroneal tendons, or posterior tibial tendons.
Radiographic studies:
Venous duplex ultrasound of the left lower extremity was negative for DVT, but did demonstrate a 3.8 x 1.1 x 3.2 subcutaneous hematoma within the distal posterior calf soft tissues.
Assessment / Plan
Assessment: Hematoma left posterior calf.
Plan: Ms. Marr was noted to have diffuse swelling of her foot and ankle on exam today, however, I believe this is secondary to the hematoma in the posterior aspect of her calf and decreased activity levels. She does report difficulty bearing
weight, but states this is due to pressure in the calf muscle when attempting to put her heel on the floor and has mildly improved overnight. She has not yet had any imaging, so x-rays of the foot, ankle, and tib-fib have been ordered. For now,
our recommendation is to proceed with warm compresses over the hematoma and weightbearing/activities to tolerance. She does report that IV antibiotics have helped with the swelling and redness of her posterior leg, so will defer to primary team in
regards to continuation of the IV antibiotics. There is no clinical concern for compartment syndrome or ligamentous/tendinous rupture. If no improvement in the hematoma with warm compresses over the next several days, could consider proceeding
with a MRI of the left lower extremity to rule out abscess formation versus hematoma. If medically appropriate, holding Eliquis for a short course may be beneficial to helping the hematoma resolve. We will continue to follow her during her
inpatient stay.
[2025-05-30 12:23] LABS: Glucose - Point of Care 155 mg/dl (70-99)
[2025-05-30] MEDS: NOVOLOG FLEXPEN-LOW RESISTANCE 1 UNITS SC (13:19)
[2025-05-30 13:47] LABS: C-Reactive Protein 9.90 mg/L (0.0-10.00)
[2025-05-30 15:48] VITALS: BP 124/76
[2025-05-30 16:26] LABS: Glucose - Point of Care 225 mg/dl (70-99)
[2025-05-30] MEDS: NOVOLOG FLEXPEN-LOW RESISTANCE 300 UNITS SC (17:32)
[2025-05-30 20:42] LABS: Glucose - Point of Care 199 mg/dl (70-99)
[2025-05-30] MEDS: CARDIZEM CD 360 MG PO (21:38)
[2025-05-30] MEDS: DILAUDID 0.5 MG IV (21:39)
[2025-05-30] MEDS: PROTONIX 40 MG PO (21:47)
[2025-05-30 23:00] VITALS: BP 134/71
[2025-05-31] MEDS: UNASYN IV ×3 (00:26→12:44)
[2025-05-31] MEDS: ROXICODONE 5 MG PO ×2 (06:20→19:41)
[2025-05-31] MEDS: CRESTOR 20 MG PO (07:21)
--- NOTE | 2025-05-31 08:00 | W.PN.HOSP.TC ---
Today's Communication/Plan
-
Antibiotics changed to Cefepime
Eliquis continues to be on hold
MRI cannot rule out infectious component, did show hematoma -- ortho may consider washout if not improving
Continue activity as tolerated. Continue warm compresses to left posterior lower leg.
Assessment / Plan
Assessment / Plan
Physical Exam
General: No Apparent Distress
HEENT: Normocephalic, Moist mucous membranes
Respiratory: Clear to Auscultation Bilaterally
Cardiac: S1/S2 and Regular Rhythm
GI: Soft, Non Tender, Non Distended and Normal Bowel Sounds
Musculoskeletal: No Cyanosis. Left lower extremity 1+ to 2+ edema. Posterior calf ecchymotic and erythematous changes. Diffuse ecchymotic changes extending into the foot and ankle region. Diffuse edema/swelling of the ankle and dorsum of the foot.
Able to plantarflex the ankle with minimal discomfort, although dorsiflexion limited. No weakness with resisted internal or external rotation of the ankle. Fluctuant area in the surrounding regions. Left toes with good capillary refill, left foot
with normal warmth.
Neuro: AO x 3 and Nonfocal/grossly intact
Hematologic/Lymphatic: No Lymphadenopathy
Psych: Calm
Assessment/Plan
74-year-old with past medical history of zpv-uiujqpy-umagvjkxm diabetes mellitus, atrial fibrillation on anticoagulation status post recent ablation in March 2025, GERD and hyperlipidemia who presented to the emergency department with left lower
extremity swelling and redness ongoing since 2 weeks after blunt trauma to that leg. Patient reported that she had a blunt trauma to the leg about 2 weeks prior to presentation. She developed a swelling since then and was seen by PMD were told that
she had hematoma. She applied hide ice and avoided weightbearing on that leg. She reported that she was able to be out of symptoms however has been getting worse and over the 24 hours (prior to presentation) she reported a new burning sensation
localized to the leg. At the time of admission, reported that she is now unable to put any weight on that leg. She reported that the swelling is about the same. She denied any discharge. She denied having any fevers or chills. In the emergency
department she was afebrile, blood pressure 167/58 with a pulse of 68 bpm and she was saturating 96% on room air. Initial CBC was unremarkable. White count was 7.8. Electrolytes BUN/creatinine were normal. She had an ultrasound of the lower
extremity which was negative for a DVT with a 3.8 x 1.1 x 3.2 subcutaneous hematoma within the distal posterior calf soft tissues.
Left posterior calf hematoma after bike rack fell on leg
Possible Cellulitis - after bike rack fell on leg
Elevated ESR
- Got Zosyn in the ER; then was given IV Unasyn but patient's symptoms persisted/got worse 05/31/25 -- consulted ID -- antibiotics now switched to Cefepime
- blood cultures if fever develops
- pain control
- avoid weight bearing to leg for now
- Orthopedics consulted: proceed with warm compresses over the hematoma and weightbearing/activities to tolerance.
- Given no improvement as of 05/31/25, ordered LLE MRI: diffuse subcutaneous edema throughout the left lower extremity.; focal hematoma within the posterior superficial subcutaneous tissues of the distal lower leg measuring
approximately 3.2 x 1.6 x 4.5 cm, with overlying skin defect; cannot rule out superimposed infectious component.
- Hold Eliquis for 2 to 3 days to help the hematoma resolve (last dose of Eliquis was 05/30/25 morning)
- Ortho will consider washout or IR pigtail if hematoma not improving by 06/01/25
- Curbside question on 05/30/25 to vascular, vascular said okay to place formal consult, no problem -- they confirmed no issues from their standpoint -- no CTA (to check for extravasation) needed
AFIB
- Continue diltiazem
- Hold eliquis for now (last dose was on 05/30/25 morning) -- please see above
Type 2 Diabetes Mellitus
- continue metformin 500 bid
- sliding scale insulin
- continue rosuvastatin
DVT Prophylaxis: SCDs to the right lower extremity only (NOT THE LEFT LOWER EXTREMITY). Avoiding pharmacologic DVT prophylaxis given hematoma.
Code status - Full Code
Anticipated Discharge: > 48 hours
Subjective/Interval History
-
Date of Service: May 31, 2025
Patient was seen and examined. She reported her left leg feels the same or maybe even worse today. She denied any numbness, tingling or weakness to the left lower extremity.
Objective Data
-
Labs:
Laboratory Results
05/31/25
06:28
WBC Pending
Hgb Pending
Hct Pending
Plt Count Pending
Sodium Pending
Potassium Pending
Chloride Pending
Carbon Dioxide Pending
BUN Pending
Creatinine Pending
Glucose Pending
Calcium Pending
Vital Signs:
Vital Signs
Temp Pulse Resp BP Pulse Ox
98.9 F 70 16 134/71 98
05/30/25 23:00 05/30/25 23:00 05/30/25 23:00 05/30/25 23:00 05/30/25 23:00
I&O
05/30/25 05/31/25 06/01/25
06:59 06:59 06:59
Intake Total 960 / 960
Balance 960 / 960
[2025-05-31 08:17] LABS: Glucose - Point of Care 140 mg/dl (70-99)
[2025-05-31] MEDS: NOVOLOG FLEXPEN-LOW RESISTANCE SC (08:17)
[2025-05-31 08:37] VITALS: BP 159/79
[2025-05-31 10:37] LABS: Blood Urea Nitrogen 14 mg/dl (7-17); Calcium 9.5 mg/dl (8.4-10.2); Carbon Dioxide 25 mmol/L (22-30); Chloride 103 mmol/L (98-107); Estimated Creatinine Clearance 85 ml/min; Glucose 141 mg/dl (70-99); Magnesium 1.7 mg/dl (1.6-2.3); Potassium 4.4 mmol/L (3.5-5.1); Sodium 137 mmol/L (135-145); eGFR > 60.00
[2025-05-31 10:55] LABS: Hematocrit 34.2 % (37.0-47.0); Hemoglobin 11.3 g/dL (12.0-16.0); Mean Corp Hgb Conc. 33.0 g/dL (33.0-37.0); Mean Corpuscular Volume 95.3 fL (81.0-99.0); Platelet Count 199 10^3/uL (130-400); Red Cell Dist. Width 12.4 % (11.5-14.5)
--- NOTE | 2025-05-31 11:16 | CON.ID ---
Consultation
-
Date/Time Consultation Requested: May 31, 2025 1036
Date/Time Consultation Performed: May 31, 2025 1115
Requesting Provider: Dr. Deng Bui
Performing Provider: Dr. Antoinette Aguilar
Reason for Consultation: Worsening right leg hematoma/cellulitis
Chief Complaint / Past History
Chief Complaint
Left leg swelling and redness
History of Present Illness
64-year-old female with history of diabetes mellitus, atrial fibrillation on Eliquis who presented to the hospital May 29 due to worsening left leg swelling and redness. 2 weeks ago she was found cleaning her basement when the bicycle rack fell
off the wall and scraped the back of her left leg. There were 3 drops of blood then stopped. 2 days later she developed ecchymosis and swelling. There was also a lump distal back of the leg. She saw her PCP who recommended ice pack for the
hematoma. However there was no improvement. She had difficulty putting her foot flat on the floor. No fevers or chills. She came to the ER. In the ER afebrile, no leukocytosis. Peripheral vascular ultrasound showed 3.8 x 3.2 cm subcutaneous
hematoma within the distal posterior calf. Patient is currently on Unasyn. Eliquis on hold. The surrounding erythema was improving but this morning nurse noted in the dependent redder. Patient also developed new lateral calf tightness/tenderness
superior to the hematoma. She is not sure when her last tetanus shot was given. She would call her PCP tomorrow.
Past History
Additional Past Medical History:
Diabetes mellitus
Paroxysmal atrial fibrillation status post ablation, on Eliquis
Dyslipidemia
Additional Past Surgical History:
Cholecystectomy
Allergy History:
No Known Allergies Allergy (Verified 05/29/25 19:37)
Medications Reviewed: Yes
Current Antibiotics:
Unasyn d2
Social History
Tobacco: Non-Smoker
Alcohol: None
Drug: None
Living: With Family
Review of Systems
Review of Systems
General: Negative Fever, Chills or Change in Appetite
HEENT: Negative Sinus Problems or Headache
Cardiovascular: Negative Chest Pain or Dyspnea
Respiratory: Negative Dyspnea or Cough
Gasteroenterology: Negative Nausea, Vomiting or Diarrhea
Genital / Urological: Negative Dysuria or Flank Pain
Endocrine: Negative Weakness
All systems: All other systems were reviewed and were negative
Vital Signs
Temp Pulse Resp BP Pulse Ox
97.9 F 64 20 159/79 97
05/31/25 08:37 05/31/25 08:37 05/31/25 08:37 05/31/25 08:37 05/31/25 08:37
Physical Exam
Physical Exam
Constitutional: No Acute Distress and Comfortable
Eyes: No Conjunctival Hemorrhage and Sclera Anicteric
Cardiovascular: Regular Rate and S1/S2
Pulmonary: Clear
Gastrointestinal: Soft, Non Tender, Non Distended and Normal Bowel Sounds
Extremities: Edema (Distal LLE) and Other (LLE distal posterior calf firm black nodule with surrounding dark erythema receding from marked line,+ ecchymosis to foot. )
Neurological: AO x 3
Lab / Diagnostic Study Results
05/31/25 06:28
05/31/25 06:28
Abs Immat Gran (auto) 0.0 10^3/uL (0-0.05) 05/29/25 19:43
Absolute Neuts (auto) 4.2 10^3/uL (1.4-6.5) 05/29/25 19:43
Absolute Lymphs (auto) 2.7 10^3/uL (1.2-3.4) 05/29/25 19:43
Absolute Monos (auto) 0.6 10^3/uL (0.1-0.6) 05/29/25 19:43
Absolute Basos (auto) 0.1 10^3/uL (0-0.2) 05/29/25 19:43
Immature Gran % 0.1 % (0-0.5) 05/29/25 19:43
Neutrophils % 53.9 % (42.2-75.2) 05/29/25 19:43
Lymphocytes % 34.8 % (20.5-51.1) 05/29/25 19:43
Monocytes % 8.3 % (1.7-9.3) 05/29/25 19:43
Eosinophils % 1.7 % (0-6) 05/29/25 19:43
Basophils % 1.2 % (0-2) 05/29/25 19:43
ESR Cancelled 05/30/25 11:25
Lactic Acid 0.9 mmol/L (0.7-2.0) 05/30/25 06:15
C-Reactive Protein Cancelled 05/30/25 11:25
Microbiology Results
Micro:
05/30/25 10:04 MRSA Screen - Pending
Nose
05/30/25 L tib/fib xray: No evidence of acute injury. Left knee osteoarthritis as described above.
05/30/25 L foot/ankle xray: No evidence of acute injury. Calcaneal spur
05/29/25 Periph Vasc US LLE: No evidence of deep venous thrombosis in the left lower extremity as described above. Calf hematoma as described.
Assessment / Plan
# Left posterior calf hematoma after bike rack fell on leg
# Possible cellulitis
# pAfib on Eliquis. Eliquis currently on hold.
- For MRI
- Change Unasyn to cefepime.
- Follow clinically
Care Review
Plan reviewed with: Physician (Dr. Bui)
[2025-05-31] MEDS: SENOKOT-S 1 TABLET PO (11:20)
--- NOTE | 2025-05-31 11:22 | W.PN.UPDATE ---
Update Note
Progress Note Update
74 year old female admitted for worsening left lower leg pain in the setting of a hematoma from injury 2 weeks ago.
-Noted to have worsening discomfort this morning.
-Redness seems to be baseline from yesterday, but more tender to palpation of mid to proximal calf today. No change in fluctuation surrounding region of eschar.
-Swelling of ankle/dorsum of foot persists, but able to range them without any significant increase in pain, though reports she just received pain medication.
-ESR elevated at 34 mm/hr, CRP normal at 9.90. Will plan to repeat this in am.
-Continue IV abx per medicine.
-Plan to proceed with MRI w/wo contrast to further evaluate region of swelling to r/o abscess/infection vs. hematoma.
-Continue with activities to tolerance. Continue warm compresses to left posterior lower leg.
-Will f/u once imaging completed to discuss recommendations.
[2025-05-31 12:48] LABS: Glucose - Point of Care 244 mg/dl (70-99)
[2025-05-31] MEDS: NOVOLOG FLEXPEN-LOW RESISTANCE 2 UNITS SC (12:50)
--- NOTE | 2025-05-31 12:52 | CM ---
Patient seen at bedside
IA completed
HERMAN form explained & signed - in chart
Lives at home with her 28 y/o grandson in a multi-level house, 8 steps to enter, flight stairs to bed/bath
PLOF: Independent, currently using cane/walker
DME: cane, walker, glucometer which she reports does not use
VN in the 90's, denies rehab
PCP: Charlie Salguero
Pharmacy: [address], [place]
PLAN: home, when stable, no needs anticipated, CM to follow for discharge planning/needs
[2025-05-31 16:12] VITALS: BP 130/66
[2025-05-31 16:25] LABS: Glucose - Point of Care 290 mg/dl (70-99)
[2025-05-31] MEDS: NOVOLOG FLEXPEN-LOW RESISTANCE 3 UNITS SC (16:45)
[2025-05-31] MEDS: MAXIPIME 1000 MG IV (17:23)
[2025-05-31] MEDS: STERILE WATER FOR INJECTION 10 ML IV (17:24)
[2025-05-31 21:25] LABS: Glucose - Point of Care 196 mg/dl (70-99)
[2025-05-31 21:38] LABS: Glucose - Point of Care 246 mg/dl (70-99)
[2025-05-31] MEDS: PROTONIX 40 MG PO (22:07)
[2025-05-31] MEDS: CARDIZEM CD 360 MG PO (22:07)
[2025-05-31 23:00] VITALS: BP 111/54
[2025-06-01] MEDS: MAXIPIME 1000 MG IV ×5 (00:13→23:45)
[2025-06-01] MEDS: STERILE WATER FOR INJECTION 10 ML IV ×5 (00:13→23:45)
--- NOTE | 2025-06-01 05:48 | W.PN.UPDATE ---
Update Note
Progress Note Update
MRI LLE reveals a collection (3.2 x 1.6 x 4.5 cm) in the posterior calf, favoring hematoma, s/p trauma. Superimposed infection cannot be excluded, but at this point, would believe unlikely. Eliquis on hold, which should help. Drs. Bui and
Nacho discussed. Elected to observe yesterday and overnight, and if no clinical improvement, consider IR intervention vs. surgical evacuation. There has been improvement since yesterday. Repeat ESR and CRP this AM are pending. Area of hematoma has
improved from outline. Ecchymotic changes noted, with low concern for a cellulitis component. DNVI LLE. Would continue to observe. PT/OT. At this time no plan for OR, but will make her NPO pMN tonite in case. Posted with OR, but would be surprised
if necessary. Will follow. If OR necessary she will need to be consented.
--- NOTE | 2025-06-01 06:29 | PTCARENOTE ---
Pt slept well overnight. No issues to report. Vital signs stable. Pt reports pain at tolerable level. Pt ambulating to bathroom with walker as needed. Call robertson in reach. Will continue to monitor.
[2025-06-01 07:00] VITALS: BP 138/67
[2025-06-01] MEDS: CRESTOR 20 MG PO (07:35)
[2025-06-01 08:06] LABS: Glucose - Point of Care 153 mg/dl (70-99)
[2025-06-01] MEDS: NOVOLOG FLEXPEN-LOW RESISTANCE 1 UNITS SC ×3 (08:12→17:21)
[2025-06-01 09:13] LABS: Hematocrit 32.3 % (37.0-47.0); Hemoglobin 10.5 g/dL (12.0-16.0); Mean Corp Hgb Conc. 32.5 g/dL (33.0-37.0); Mean Corpuscular Volume 97.3 fL (81.0-99.0); Platelet Count 185 10^3/uL (130-400); Red Cell Dist. Width 12.4 % (11.5-14.5)
[2025-06-01 10:05] LABS: C-Reactive Protein 5.70 mg/L (0.0-10.00)
[2025-06-01 10:16] LABS: Blood Urea Nitrogen 12 mg/dl (7-17); Calcium 9.4 mg/dl (8.4-10.2); Carbon Dioxide 26 mmol/L (22-30); Chloride 105 mmol/L (98-107); Estimated Creatinine Clearance 85 ml/min; Glucose 126 mg/dl (70-99); Potassium 4.1 mmol/L (3.5-5.1); Sodium 136 mmol/L (135-145); eGFR > 60.00
[2025-06-01] MEDS: ROXICODONE 5 MG PO ×2 (10:17→19:49)
--- NOTE | 2025-06-01 10:48 | W.PN.HOSP.TC ---
Today's Communication/Plan
-
see A/P
Assessment / Plan
Assessment / Plan
HPI: 74-year-old with past medical history of vez-xiqauvw-jefjkjbsp diabetes mellitus, atrial fibrillation on anticoagulation status post recent ablation in March 2025, GERD and hyperlipidemia; who presented with left lower extremity swelling
and redness ongoing for 2 weeks after blunt trauma to the leg.
LLE MRI:
There is diffuse subcutaneous edema throughout the left lower extremity. There is a focal hematoma within the posterior superficial subcutaneous tissues of the distal lower leg measuring approximately 3.2 x 1.6 x 4.5 cm, with overlying skin defect.
Cannot rule out superimposed infectious component.
A/P:
# LLE/calf hematoma after bike rack fell on leg
# Possible Cellulitis
LLE MRI report as above
Cont Cefepime per ID
pain control with Tylenol PRN, oxycodone PRN, Dilaudid PRN
Orthopedics consulted: proceed with warm compresses over the hematoma and weightbearing/activities to tolerance.
INSULATION PACKER Eliquis on hold to help the hematoma resolve
PT OT eval
# Paroxysmal AFIB
Continue diltiazem
INSULATION PACKER eliquis on hold to help hematoma resorb
# Type 2 Diabetes Mellitus
continue metformin 500 bid
sliding scale insulin
continue rosuvastatin
DVT Prophylaxis: SCDs to the right lower extremity only. Avoiding pharmacologic DVT prophylaxis given hematoma.
Code status - Full Code
Dispo: PT OT eval
Anticipated Discharge: 24 - 48 hours
Subjective/Interval History
-
Date of Service: June 01, 2025
Objective Data
-
Labs:
Laboratory Results
06/01/25
08:06
WBC 5.8
Hgb 10.5 L
Hct 32.3 L
Plt Count 185
Sodium 136
Potassium 4.1
Chloride 105
Carbon Dioxide 26
BUN 12
Creatinine 0.6
Glucose 126 H
Calcium 9.4
Vital Signs:
Vital Signs
Temp Pulse Resp BP Pulse Ox
36.7 C 59 18 138/67 99
06/01/25 07:00 06/01/25 07:00 06/01/25 07:00 06/01/25 07:00 06/01/25 08:00
I&O
05/31/25 06/01/25 06/02/25
06:59 06:59 06:59
Intake Total 960 / 960 1230 / 1230
Balance 960 / 960 1230 / 1230
Review of Systems
-
History Source: Patient
All other systems: Reviewed and negative
Physical Exam
-
General: Well Developed, Well Nourished, No Apparent Distress, Comfortable and Conversant; Negative Respiratory Distress
HEENT: Normocephalic, Atraumatic, Nose Appears Normal and Ears Appear Normal; Negative Oxygen
Respiratory: Clear to Auscultation and Non Labored Respirations; Negative Accessory Resp Muscle Use
Cardiac: Regular Rhythm and S1/S2
GI: Soft, Nontender, Nondistended and Normal Bowel Sounds
Skin: Warm, Dry and Other (L calf area hematoma )
Neuro: Awake and Alert
Psych: Calm and Intact Judgement/Insight
Data Reviewed
-
Labs: Labs Reviewed by me
--- NOTE | 2025-06-01 11:20 | W.PN.ID1 ---
Date of Service
Date of Service: June 01, 2025
Today's Communication
Continue cefepime.
Assessment / Plan
# Left posterior calf hematoma after bike rack fell on leg
# Possible cellulitis- improving
# pAfib on Eliquis. Eliquis currently on hold.
- Continue cefepime for now.
- Follow clinically
Chief Complaint
-: Cellulitis and Other (Hematoma)
Subjective / Review of Systems
Calf is not as tight.
Vital Signs / Physical Exam
Vital Signs
Vital Signs
Temp Pulse Resp BP Pulse Ox
98.0 F 59 18 138/67 99
06/01/25 07:00 06/01/25 07:00 06/01/25 07:00 06/01/25 07:00 06/01/25 08:00
Physical Exam
Constitutional: No Acute Distress and Comfortable
Pulmonary: Clear
Gastrointestinal: Soft, Non Tender and Non Distended
Extremities: Edema (LLE decrease) and Erythema (Posterior calf with hematoma, surrounding erythema receding from marked line and decrease with leg elevation. )
Neurological: AO x 3
Objective Data
Lab Data
Lab Results
06/01/25 08:06
06/01/25 08:06
ESR 29 mm/hour (0-20) H 06/01/25 08:06
Estimated Creat Clear 85 ml/min 06/01/25 08:06
Lactic Acid 0.9 mmol/L (0.7-2.0) 05/30/25 06:15
Total Bilirubin 0.4 mg/dl (0.2-1.3) 05/29/25 19:43
AST 32 U/L (14-36) 05/29/25 19:43
ALT 21 U/L (0-35) 05/29/25 19:43
Alkaline Phosphatase 67 U/L (38-126) 05/29/25 19:43
C-Reactive Protein 5.70 mg/L (0.0-10.00) 06/01/25 08:06
Most recent labs reviewed.
Micro Results:
05/30/25 10:04 MRSA Screen - Final
Nose No Methicillin Resistant Staphylococcus aureus isolated.
05/31/25 MRI LLE wo and with: There is diffuse subcutaneous edema throughout the left lower extremity. There is a focal hematoma within the posterior superficial subcutaneous tissues of the distal lower leg measuring approximately 3.2 x 1.6 x 4.5 cm,
with overlying skin defect
05/30/25 L tib/fib xray: No evidence of acute injury. Left knee osteoarthritis as described above.
05/30/25 L foot/ankle xray: No evidence of acute injury. Calcaneal spur
05/29/25 Periph Vasc US LLE: No evidence of deep venous thrombosis in the left lower extremity as described above. Calf hematoma as described.
MRI: Report Reviewed
[2025-06-01 12:00] LABS: Glucose - Point of Care 168 mg/dl (70-99)
--- NOTE | 2025-06-01 12:23 | CM ---
Patient seen at bedside on . Patient for discharge home with no needs anticipated. CM will continue to follow for discharge planning needs.
Plan; home with no needs anticipated.
--- NOTE | 2025-06-01 13:23 | WOUNDNOTE ---
L POSTERIOR LOWER LEG
--- NOTE | 2025-06-01 13:23 | WOUNDNOTE ---
L LOWER LEG MEDIAL
--- NOTE | 2025-06-01 13:24 | WOUNDNOTE ---
L LOWER LEG LATERAL
--- NOTE | 2025-06-01 13:25 | WOUNDNOTE ---
[facility] RN note: Patient admitted with cellulitis of L lower leg.
See H&P for complete history.
PMH: Past Medical History: Reports Arrhythmia (Paroxysmal atrial fibrillation status post ablation), Hypercholesterolemia and NIDDM
Past Surgical History: Reports Cholecystectomy and Orthopedic
Wound Location and type/assessment: Patient admitted with: L posterior leg abrasion, sustained when a bike rack fell on her leg. On calf there is a dry intact scab, small hematoma underneath. + pedal pulses and 1+ edema. Tender on palpation
surrounding scab. Cellulitis improved per I&D note. Reviewed vascular note, no vascular intervention required. Bruising noted on ankles and sides of feet resolving, leg elevated on pillow.
Appetite: Good.
Pressure redistribution devices in place: Accumax, leg elevation and pillow under calves.
Plan: L leg open to air, recommend leg elevation as compression would be too painful.
Will sign off unless needed.
--- NOTE | 2025-06-01 13:50 | W.PN.UPDATE ---
Update Note
Progress Note Update
Seen and examined with TRAVIS Miles and TRAVIS Moore. See TRAVIS Miles's full consultation note from prior. 74-year-old female who is on anticoagulation for A-fib. Injured her posterior left calf 2 weeks ago on a bike rack. Persistent
pain/swelling/redness. Presented to the emergency room and to the hospital. Patient notes continued pain, but the redness is better. She thinks the pain may be somewhat better. On exam/she is awake and alert. In no acute distress. Breathing is
unlabored. Subcutaneous hematoma at the ankle on exam. Does not appear to be in the deeper compartment/muscles. Compartments and muscles are all very soft. She does have some tenderness along the gastrocnemius tendon but there is no fullness or
anything to suggest a compartment syndrome. Motor and sensory function of the foot are intact. Ankle dorsiflexion elicits pain and therefore she limits that somewhat. Plan/hematoma with blistering left posterior distal calf. 2-week old hematoma
likely. Would obtain CT scan just to make sure no deeper or intramuscular fluid pocket or any active extravasation (unlikely). Otherwise agree with conservative management for now. No imminent need for evacuation hematoma.
[2025-06-01 15:00] VITALS: BP 160/76
[2025-06-01 15:40] VITALS: BP 160/76; PULSE 72; O2SAT 98
--- NOTE | 2025-06-01 15:52 | PTOTSP ---
Pt currently at mod I level for basic ADLs and functional mobility with RW in room and bathroom. Pt has all equipment needed for home. Recommended use of RW during ADLs and IADLs while LLE is heeling; has walker bag and grooving lathe tender to assist as needed.
Grandson available to assist as needed. No further skilled OT indicated at this time.
[2025-06-01 15:55] VITALS: BP 160/76; PULSE 72; O2SAT 98
[2025-06-01 21:24] LABS: Glucose - Point of Care 173 mg/dl (70-99)
[2025-06-01] MEDS: PROTONIX 40 MG PO (21:54)
[2025-06-01] MEDS: CARDIZEM CD 360 MG PO (21:55)
[2025-06-01 23:21] VITALS: BP 144/66
[2025-06-02 05:54] LABS: Hematocrit 29.5 % (37.0-47.0); Hemoglobin 10.4 g/dL (12.0-16.0); Mean Corp Hgb Conc. 35.3 g/dL (33.0-37.0); Mean Corpuscular Volume 93.9 fL (81.0-99.0); Platelet Count 175 10^3/uL (130-400); Red Cell Dist. Width 12.2 % (11.5-14.5)
[2025-06-02] MEDS: MAXIPIME 1000 MG IV ×3 (05:56→17:06)
[2025-06-02] MEDS: STERILE WATER FOR INJECTION 10 ML IV ×3 (05:56→17:07)
[2025-06-02 06:20] LABS: Blood Urea Nitrogen 17 mg/dl (7-17); Calcium 9.4 mg/dl (8.4-10.2); Carbon Dioxide 26 mmol/L (22-30); Chloride 106 mmol/L (98-107); Estimated Creatinine Clearance 73 ml/min; Glucose 125 mg/dl (70-99); Magnesium 1.8 mg/dl (1.6-2.3); Potassium 4.3 mmol/L (3.5-5.1); Sodium 135 mmol/L (135-145); eGFR > 60.00
[2025-06-02 07:00] VITALS: BP 137/67
[2025-06-02 07:54] LABS: Glucose - Point of Care 151 mg/dl (70-99)
[2025-06-02] MEDS: CRESTOR 20 MG PO (07:58)
[2025-06-02] MEDS: NOVOLOG FLEXPEN-LOW RESISTANCE 1 UNITS SC (07:58)
--- NOTE | 2025-06-02 08:05 | W.PN.UPDATE ---
Update Note
Progress Note Update
74-year-old female left lower leg hematoma
Patient appears to be clinically improving with lines outlining cellulitis. Neurovascular intact L3-S1 no indication at this time for operative invention. Vascular and infectious disease following as well
No current changes to the recommended treatment plan. Orthopedic surgery will continue to follow
--- NOTE | 2025-06-02 10:17 | W.PN.HOSP.TC ---
Addendum entered and electronically signed by Gill Olivas MD 06/02/25 14:18:
# left lower extremity hematoma is related to/associated with/exacerbated by Eliquis use
# Hypomagnesemia, resolved
Original Note:
Today's Communication/Plan
-
see A/P
Assessment / Plan
Assessment / Plan
HPI: 74-year-old with past medical history of vrm-jqpkoph-hdstzwngn diabetes mellitus, atrial fibrillation on anticoagulation status post recent ablation in March 2025, GERD and hyperlipidemia; who presented with left lower extremity swelling
and redness ongoing for 2 weeks after blunt trauma to the leg.
LLE MRI:
There is diffuse subcutaneous edema throughout the left lower extremity. There is a focal hematoma within the posterior superficial subcutaneous tissues of the distal lower leg measuring approximately 3.2 x 1.6 x 4.5 cm, with overlying skin defect.
Cannot rule out superimposed infectious component.
A/P:
# LLE/calf hematoma after bike rack fell on leg
# Possible Cellulitis
LLE MRI report as above
repeat CT LE angio 06/01 without evidence for contrast extravasation in this hematoma with no findings to suggest active bleeding.
Cont Cefepime per ID
pain control with Tylenol PRN, oxycodone PRN, Dilaudid PRN
Orthopedics consulted: proceed with warm compresses over the hematoma and weightbearing/activities to tolerance.
TECHNOLOGY OFFICER Eliquis on hold to help resorb hematoma
PT OT cleared for HH
# Paroxysmal AFIB
Continue diltiazem
TECHNOLOGY OFFICER eliquis on hold to help hematoma resorb
# Type 2 Diabetes Mellitus
continue metformin 500 bid
sliding scale insulin
continue rosuvastatin
DVT Prophylaxis: SCDs to the right lower extremity only. Avoiding pharmacologic DVT prophylaxis given hematoma.
Code status - Full Code
Dispo: PT OT cleared for HH
Anticipated Discharge: Within 24 hours
Subjective/Interval History
-
Date of Service: June 02, 2025
Objective Data
-
Labs:
Laboratory Results
06/02/25
05:14
WBC 6.1
Hgb 10.4 L
Hct 29.5 L
Plt Count 175
Sodium 135
Potassium 4.3
Chloride 106
Carbon Dioxide 26
BUN 17
Creatinine 0.7
Glucose 125 H
Calcium 9.4
Vital Signs:
Vital Signs
Temp Pulse Resp BP Pulse Ox
36.6 C 59 16 137/67 97
06/02/25 07:00 06/02/25 07:00 06/02/25 07:00 06/02/25 07:00 06/02/25 07:00
I&O
06/01/25 06/02/25 06/03/25
06:59 06:59 06:59
Intake Total 1230 / 1230 1200 / 1200
Balance 1230 / 1230 1200 / 1200
Review of Systems
-
History Source: Patient
All other systems: Reviewed and negative
Physical Exam
-
General: Well Developed, Well Nourished, No Apparent Distress, Comfortable and Conversant; Negative Respiratory Distress
HEENT: Normocephalic, Atraumatic, Nose Appears Normal and Ears Appear Normal; Negative Oxygen
Respiratory: Clear to Auscultation and Non Labored Respirations; Negative Accessory Resp Muscle Use
Cardiac: Regular Rhythm and S1/S2
GI: Soft, Nontender, Nondistended and Normal Bowel Sounds
Skin: Warm, Dry and Other (L calf area hematoma )
Neuro: Awake and Alert
Psych: Calm and Intact Judgement/Insight
Data Reviewed
-
CT Scan: Report Reviewed by me
MRI: Report Reviewed by me
Labs: Labs Reviewed by me
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
[2025-06-02 11:50] LABS: Glucose - Point of Care 137 mg/dl (70-99)
[2025-06-02] MEDS: NOVOLOG FLEXPEN-LOW RESISTANCE SC (11:53)
--- NOTE | 2025-06-02 13:23 | W.PN.UPDATE ---
Update Note
Progress Note Update
CT images reviewed. Subcutaneous hematoma in the vicinity of the Achilles tendon. No other significant findings. No extravasation. Nothing for me to offer from a vascular perspective at this point. Please call with questions. Will sign off.
--- NOTE | 2025-06-02 13:59 | CM ---
Addendum entered by Diann Shi 06/03/25 10:12:
Order for VN received, however after speaking with patient, she does not feel that she needs VN, and was advised to follow up with her PCP as an outpatient.
Plan: Discharge to home with no needs. Pt's daughter will pick her up later today to return home.
Original Note:
Patient seen at bedside on . Patient plan is for discharge home tomorrow with no needs anticipated at this time. CM will continue to follow for discharge planning needs.
Plan; home with no needs
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
--- NOTE | 2025-06-02 14:10 | PN.CDI ---
CDI
- -
CDI:
Physician Documentation Request
Admit Date: 06/01/25 07:53
Dear Doctor Brendon,
Clinical Indicators:
Patient admitted with LLE/calf hematoma.
05/30 Magnesium Sulfate 1 gram IV rider x 1.
Magnesium trend:
05/30/25 05/31/25 06/02/25
06:15 06:28 05:14
Magnesium 1.5 L 1.7 1.8
Based on the above, could you clarify in the progress notes, the appropriate diagnosis, if significant, that supports the above abnormalities and additional evaluation, monitoring and/or treatment rendered:
Hypomagnesemia, resolved
Abnormal lab value, clinically insignificant
Other
Use of terms such as suspected, likely, concern for, or probable (associated with a specific diagnosis that is being evaluated, monitored, or treated as if it exists) are acceptable and can be coded in the inpatient setting, when documented at the
time of discharge.
Thank you,
QUENTIN Horn RN
CDI Specialist
available via tiger text
Please use your independent medical judgment in providing your response.
[2025-06-02] MEDS: ROXICODONE 5 MG PO ×2 (14:31→21:16)
[2025-06-02 15:00] VITALS: BP 119/61
[2025-06-02 16:41] LABS: Glucose - Point of Care 231 mg/dl (70-99)
[2025-06-02] MEDS: NOVOLOG FLEXPEN-LOW RESISTANCE 2 UNITS SC (17:45)
[2025-06-02] MEDS: CARDIZEM CD 360 MG PO (21:14)
[2025-06-02] MEDS: PROTONIX 40 MG PO (21:15)
[2025-06-02 21:42] LABS: Glucose - Point of Care 299 mg/dl (70-99)
[2025-06-02 23:00] VITALS: BP 122/66
[2025-06-03] MEDS: MAXIPIME 1000 MG IV ×3 (00:37→12:33)
[2025-06-03] MEDS: STERILE WATER FOR INJECTION 10 ML IV ×3 (00:37→12:33)
[2025-06-03 05:47] LABS: Hematocrit 30.9 % (37.0-47.0); Hemoglobin 10.2 g/dL (12.0-16.0); Mean Corp Hgb Conc. 33.0 g/dL (33.0-37.0); Mean Corpuscular Volume 96.0 fL (81.0-99.0); Platelet Count 164 10^3/uL (130-400); Red Cell Dist. Width 12.3 % (11.5-14.5)
[2025-06-03] MEDS: ROXICODONE 5 MG PO ×2 (05:58→12:56)
[2025-06-03 06:23] LABS: Blood Urea Nitrogen 17 mg/dl (7-17); Calcium 9.2 mg/dl (8.4-10.2); Carbon Dioxide 26 mmol/L (22-30); Chloride 105 mmol/L (98-107); Estimated Creatinine Clearance 85 ml/min; Glucose 126 mg/dl (70-99); Potassium 4.4 mmol/L (3.5-5.1); Sodium 135 mmol/L (135-145); eGFR > 60.00
[2025-06-03 07:46] VITALS: BP 150/72
[2025-06-03 07:59] LABS: Glucose - Point of Care 161 mg/dl (70-99)
[2025-06-03] MEDS: CRESTOR 20 MG PO (08:02)
[2025-06-03] MEDS: NOVOLOG FLEXPEN-LOW RESISTANCE 1 UNITS SC ×2 (08:05→12:32)
--- NOTE | 2025-06-03 09:23 | W.PN.UPDATE ---
Update Note
Progress Note Update
Kat is resting comfortably in bed this morning. She endorses continued discomfort about her calf and lower leg, but overall reports things seem to be moving in the right direction.
Directed exam of the left lower extremity reveals hematoma and slight erythema about the achilles. Line of erythema is regressed from marker line on leg. The area is mildly tender. Able to plantar and dorsiflex ankle. NVID.
Overall, Kat appears to be continuing to improve in regards to her left lower leg hematoma. No indication for surgical intervention at this time. She may continue WBAT, and I encouraged her to continue working with PT while admitted. I encouraged
gentle stretching of her calf, and we reviewed some stretches today. She may use heat prior to stretching. Pain control prn.
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
[2025-06-03 11:53] LABS: Glucose - Point of Care 195 mg/dl (70-99)
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
[2025-06-03 13:00] VITALS: BP 124/65
== END 2025-06-03 13:35 | disposition home health service (06) | DRG 605 ==
LOC: 3 WEST ACU 07:53
PROVIDERS: Hospitalist; Physician Assistant Medical; Student in an Organized Health Care Education/Training Program; ADMITTING PHYSICIAN Internal Medicine; ATTENDING PHYSICIAN Internal Medicine; CONSULT PHYSICIAN Internal Medicine Infectious Disease; CONSULT PHYSICIAN Orthopaedic Surgery Hand Surgery; EMERGENCY PHYSICIAN Emergency Medicine; FAMILY PHYSICIAN Internal Medicine
DX: S80.12XA Contusion of left lower leg, initial encounter (principal); L03.116 Cellulitis of left lower limb; D68.32 Hemorrhagic disorder due to extrinsic circulating anticoagulants; Z79.01 Long term (current) use of anticoagulants; I48.0 Paroxysmal atrial fibrillation; W20.8XXA Other cause of strike by thrown, projected or falling object, initial encounter; E11.9 Type 2 diabetes mellitus without complications
CPT/HCPCS: 73590; 73610; 73630; 73720; 75635; 80048; 80053; 82962; 83605; 83735; 85025; 85027; 85652; 86140; 87070; 93005; 93971; 96365; 97110; 97116; 97162; 97166; 99284; A9575; Q9967